=== PATIENT | male | born 1980 | race Hispanic/Latino ===

== ENCOUNTER 2022-02-28 20:12 | Emergency (ER) | payer SELFPAY ==
[2022-02-28 21:00] LABS: Bilirubin,Urine NEG (Negative); Blood,Urine NEG (Negative); Color,Urine Yellow (Yellow); Mucus,Urine 2+ /HPF
[2022-02-28] MEDS ORDERED: HYDROmorphone 1 MG/1 ML INJ IV ONE ×3 (21:23→23:31)
[2022-02-28] MEDS ORDERED: ONDANSETRON 4 MG/2 ML INJ IV ONE ×2 (21:23→22:19)
--- NOTE | 2022-02-28 21:26 | Emergency Department Report ---
ED Abdominal Pain HPI - General Chief Complaint: Abdominal Pain Stated Complaint: ABD PAIN Time Seen by Provider: 02/28/22 21:23 Source: patient Mode of arrival: Ambulatory Limitations: No Limitations - History of Present Illness Initial Comments: Patient is a 41-year-old male who presents emergency room with right lower quadrant pain. Patient states that his pain started a week ago. Patient states it was mild and then today it worsened. Patient states his pain now is a 10 out of 10. Patient states the pain is nonradiating. Patient states he started a fast 1 week ago and was doing a water fast and then ate at a [employer] restaurant and the pain became severe. Patient denies fever. Patient denies chills. Patient denies nausea and vomiting. Patient denies recent travel. Patient denies recent international travel. Patient denies exposure to the novel coronavirus. Patient denies sick contacts. Patient denies fever and chills. Patient denies cough. Patient denies diarrhea. Patient denies coming in contact with anybody with symptoms of the novel coronavirus. MD Complaint: abdominal pain -: Gradual, week(s) Location: RLQ Radiation: none Migration to: no migration Severity: severe Severity scale (0 -10): 10 Quality: stabbing Consistency: constant Improves With: rest Worsens With: movement Associated Symptoms: denies: nausea, vomiting, diarrhea, fever, chills, constipation, dysuria, hematemesis, hematochezia, melena, hematuria, anorexia - Related Data Previous Rx's Medication Instructions Recorded Last Taken Type HYDROcodone/APAP 10-325 [[place] 1 each PO Q6HR PRN #10 tablet 02/28/22 Unknown Rx 10/325] Tamsulosin [Flomax] 0.4 mg PO QDAY 14 Days #14 cap 02/28/22 Unknown Rx Allergies Allergy/AdvReac Type Severity Reaction Status Date / Time ibuprofen Allergy Unknown Verified 02/28/22 20:21 Penicillins Allergy Unknown Verified 02/28/22 20:20 ED Review of Systems ROS: Stated complaint: ABD PAIN Other details as noted in HPI Constitutional: denies: chills, fever Eyes: denies: eye pain, eye discharge, vision change ENT: denies: ear pain, throat pain Respiratory: denies: cough, shortness of breath, wheezing Cardiovascular: denies: chest pain, palpitations Endocrine: no symptoms reported Gastrointestinal: as per HPI, abdominal pain. denies: nausea, diarrhea Genitourinary: denies: urgency, dysuria Musculoskeletal: denies: back pain, joint swelling, arthralgia Skin: denies: rash, lesions Neurological: denies: headache, weakness, paresthesias Psychiatric: denies: anxiety, depression Hematological/Lymphatic: denies: easy bleeding, easy bruising ED Past Medical Hx - Past Medical History Previous Medical History?: No - Surgical History Past Surgical History?: No - Family History Family history: no significant - Social History Smoking Status: Never Smoker Substance Use Type: None - Medications Home Medications: Home Medications Medication Instructions Recorded Confirmed Last Taken Type HYDROcodone/APAP 10-325 [[place] 1 each PO Q6HR PRN #10 tablet 02/28/22 Unknown Rx 10/325] Tamsulosin [Flomax] 0.4 mg PO QDAY 14 Days #14 cap 02/28/22 Unknown Rx ED Physical Exam - General Limitations: No Limitations General appearance: alert, in no apparent distress - Head Head exam: Present: atraumatic, normocephalic - Eye Eye exam: Present: normal appearance - ENT ENT exam: Present: mucous membranes moist - Neck Neck exam: Present: normal inspection - Respiratory Respiratory exam: Present: normal lung sounds bilaterally. Absent: respiratory distress - Cardiovascular Cardiovascular Exam: Present: regular rate, normal rhythm. Absent: systolic murmur, diastolic murmur, rubs, gallop - GI/Abdominal GI/Abdominal exam: Present: soft, tenderness (Right lower quadrant tenderness to palpation.), normal bowel sounds - Rectal Rectal exam: Present: deferred - Extremities Exam Extremities exam: Present: normal inspection - Back Exam Back exam: Present: normal inspection - Neurological Exam Neurological exam: Present: alert, oriented X3 - Psychiatric Psychiatric exam: Present: normal affect, normal mood - Skin Skin exam: Present: warm, dry, intact, normal color. Absent: rash ED Course Vital Signs 02/28/22 02/28/22 20:16 21:29 Temperature 98.7 F 98.4 F Pulse Rate 87 88 Respiratory 18 20 Rate Blood Pressure 146/120 O2 Sat by Pulse 99 99 Oximetry - Reevaluation(s) Reevaluation #1: Patient states he is feeling better. Patient states the pain has decreased. Patient denies nausea and vomiting. 02/28/22 22:27 Reevaluation #2: Patient will receive fluids and Flomax. Patient states the pain is starting to increase. 02/28/22 23:10 Reevaluation #3: Patient states the pain is better but states the pain is starting to increase. Patient was given another dose of Dilaudid prior to discharge. I discussed all results and clinical findings with patient. I discussed plan of care with patient. Patient agrees with plan of care. Patient is stable for discharge. Patient will be discharged home. Patient given discharge instructions. Patient voiced understanding of discharge instructions. 02/28/22 23:41 ED Medical Decision Making - Lab Data Result diagrams: 02/28/22 20:46 02/28/22 20:46 - Radiology Data Radiology results: report reviewed CT ABDOMEN AND PELVIS WITH CONTRAST INDICATION / CLINICAL INFORMATION: RLQ PAIN. TECHNIQUE: Axial CT images were obtained through the abdomen and pelvis after IV contrast. All CT scans at this location are performed using CT dose reduction for ALARA by means of automated expos ure control. COMPARISON: None available. FINDINGS: LOWER CHEST: No significant abnormality of the imaged chest. LIVER: Diffuse low attenuation compatible with hepatic steatosis. GALLBLADDER: No significant abnormality. BILE DUCTS: No significant abnormality. SPLEEN: No significant abnormality. PANCREAS: No significant abnormality. ADRENALS: No significant abnormality. KIDNEYS/URETERS: 2-3 mm distal right ureteral stone just proximal to the right UVJ. Associated mild hydronephrosis additionally present. An additional lower pole nonobstructing nephrolith measuring 1 to 2 mm is noted within the anterior calyx of the lower pole right kidney. Multiple small left nephroliths are present. STOMACH / DUODENUM / SMALL BOWEL: The stomach, duodenum, and small bowel demonstrate no significant abnormality. No specific abnormality of the mesentery demonstrated. COLON: No significant abnormality. APPENDIX: No significant abnormality. PERITONEUM: No free air or free fluid are present within the abdomen or pelvis. LYMPH NODES: No significant adenopathy. AORTA / ARTERIES: No significant abnormality. IVC / VEINS: No significant abnormality. URINARY BLADDER: No significant abnormality. REPRODUCTIVE ORGANS: No significant abnormality. ADDITIONAL ABDOMINAL/PELVIC FINDINGS: None. SKELETAL SYSTEM: Multilevel loss of intervertebral disc space mild to moderate in severity with multilevel vacuum disc phenomenon. Multilevel facet arthropathy diffusely present. IMPRESSION: 1. Distal right ureteral stone with associated mild right hydronephrosis. 2. Additional bilateral nephroliths. - Medical Decision Making Patient is a 41-year-old male who presents emergency room with severe abdominal pain. Patient's abdominal pain resolved for a week. Patient states today it became severe and unbearable. Patient given 2 mg of Dilaudid to calm his pain down to get a CT scan. Patient's had a CT which shows a right kidney stone with mild hydronephrosis. Patient had labs done which were essentially unremarkable except mildly elevated WBC. Patient given fluids and Flomax in the ER. Patient is stable for discharge. Patient does not require any further emergency medical service. Patient was discharged home. I discussed all results and clinical findings with patient. I discussed plan of care with patient. Patient agrees with plan of care. Patient is stable for discharge. Patient will be discharged home. Patient given discharge instructions. Patient voiced understanding of discharge instructions. - Differential Diagnosis Kidney stone, appendicitis, abdominal pain. Critical care attestation.: If time is entered above; I have spent that time in minutes in the direct care of this critically ill patient, excluding procedure time. ED Disposition Clinical Impression: Kidney stones Abdominal pain Qualifiers: Abdominal location: right lower quadrant Qualified Code(s): R10.31 - Right lower quadrant pain Disposition: 01 HOME / SELF CARE / HOMELESS Is pt being admited?: No Does the pt Need Aspirin: No Condition: Stable Instructions: Kidney Stones, [id number] Additional Instructions: Patient to follow-up with primary care in 2 to 3 days. Patient to follow-up with urologist in 2 to 3 days. Patient to rest. Patient to increase water. Patient to avoid strenuous exercise or heavy lifting until cleared by urologist and primary care.. Patient to take Tylenol or ibuprofen as needed for pain. Patient to take meds as directed. Patient to return to the ER if condition worsens, changes or new symptoms arise. Prescriptions: Tamsulosin [Flomax] 0.4 mg PO QDAY 14 Days #14 cap HYDROcodone/APAP 10-325 [[place] 10/325] 1 each PO Q6HR PRN #10 tablet PRN Reason: Pain Referrals: TANYA DESAI MD [Staff Physician] - 2-3 Days JESSIKA BANKS MD [Staff Physician] - 2-3 Days Time of Disposition: 23:50
[2022-02-28 21:34] LABS: Alanine Aminotransferase 38 units/L (7-56); Albumin 4.7 g/dL (3.9-5); BUN/Creatinine Ratio 8; Blood Urea Nitrogen 11 mg/dL (9-20); Hemolysis Index 10
[2022-02-28 21:36] LABS: Basophils % (Auto) 0.2 % (0.0-1.8); Eosinophils # (Auto) 0.1 K/mm3 (0.0-0.4); Eosinophils % (Auto) 1.1 % (0.0-4.3); Hematocrit 44.7 % (35.5-45.6); Hemoglobin 14.9 gm/dl (11.8-15.2); Lymphocytes % (Auto) 16.1 % (13.4-35.0); Mean Corpuscular HGB Conc 33 % (32-34); Mean Corpuscular Volume 92 fl (84-94); Monocytes # (Auto) 1.3 K/mm3 (0.0-0.8); Monocytes % (Auto) 10.4 % (0.0-7.3); Platelet Count 275 K/mm3 (140-440); Red Blood Count 4.88 M/mm3 (3.65-5.03); Red Cell Distribution Width 13.8 % (13.2-15.2)
--- NOTE | 2022-02-28 22:47 | Cat Scan Report ---
CT ABDOMEN AND PELVIS WITH CONTRAST INDICATION / CLINICAL INFORMATION: RLQ PAIN. TECHNIQUE: Axial CT images were obtained through the abdomen and pelvis after IV contrast. All CT sc ans at this location are performed using CT dose reduction for ALARA by means of automated exposure c ontrol. COMPARISON: None available. FINDINGS: LOWER CHEST: No significant abnormality of the imaged chest. LIVER: Diffuse low attenuation compatible with hepatic steatosis. GALLBLADDER: No significant abnormality. BILE DUCTS: No significant abnormality. SPLEEN: No significant abnormality. PANCREAS: No significant abnormality. ADRENALS: No significant abnormality. KIDNEYS/URETERS: 2-3 mm distal right ureteral stone just proximal to the right UVJ. Associated mild h ydronephrosis additionally present. An additional lower pole nonobstructing nephrolith measuring 1 to 2 mm is noted within the anterior calyx of the lower pole right kidney. Multiple small left nephroli ths are present. STOMACH / DUODENUM / SMALL BOWEL: The stomach, duodenum, and small bowel demonstrate no significant a bnormality. No specific abnormality of the mesentery demonstrated. COLON: No significant abnormality. APPENDIX: No significant abnormality. PERITONEUM: No free air or free fluid are present within the abdomen or pelvis. LYMPH NODES: No significant adenopathy. AORTA / ARTERIES: No significant abnormality. IVC / VEINS: No significant abnormality. URINARY BLADDER: No significant abnormality. REPRODUCTIVE ORGANS: No significant abnormality. ADDITIONAL ABDOMINAL/PELVIC FINDINGS: None. SKELETAL SYSTEM: Multilevel loss of intervertebral disc space mild to moderate in severity with multi level vacuum disc phenomenon. Multilevel facet arthropathy diffusely present. IMPRESSION: 1. Distal right ureteral stone with associated mild right hydronephrosis. 2. Additional bilateral nephroliths. Signer Name: Viktor Carrington II, MD Signed: 02/28/2022 10:43 PM Workstation Name: [id number]
[2022-02-28] MEDS ORDERED: TAMSULOSIN 0.4 MG CAP PO ONE (23:15)
[2022-02-28] MEDS ORDERED: SODIUM CHLORIDE 0.9% 1000 ML 1,000 ML IV ONE (23:15)
[2022-03-01 02:11] VITALS: BP 142/98
== END 2022-03-01 02:11 | disposition home or self-care (01) ==
LOC: ED 20:12
DX: N20.0 Calculus of kidney (principal); R10.31 Right lower quadrant pain; Z88.6 Allergy status to analgesic agent; Z88.0 Allergy status to penicillin; Z79.899 Other long term (current) drug therapy
CPT/HCPCS: 36415; 74177; 80053; 81001; 85025; 96361; 96374; 96375; 96376; 99284; J1170; J2405; J7030; Q9967